=== PATIENT | female | born 1990 | race Caucasian/White ===

== ENCOUNTER 2020-08-29 23:36 | Inpatient (IN) | payer MEDICAID ==
[~2020-08-29] VITALS: Ht 167.6 cm; Wt 117.0 kg
[2020-08-30] MEDS ORDERED: LACTATED RINGERS 1,000 ML IV SCH (00:15)
[2020-08-30] MEDS ORDERED: MORPHINE SULFATE 5 MG/ML VIAL IVP PRN (00:15)
[2020-08-30] MEDS: MAG SULF 20 GM/H2O PREMIX DRIP 500 ML IV SCH ×2 (00:51→08:26)
[2020-08-30 00:53] LABS: BASOPHILS # (AUTO) 0.1 K/uL (0.00-0.22); BASOPHILS % (AUTO) 0.6 % (0.0-2.0); EOSINOPHILS # (AUTO) 0.1 K/uL (0-0.4); EOSINOPHILS % (AUTO) 1.1 % (0.0-4.0); HEMATOCRIT 38.7 % (36-48); HEMOGLOBIN 12.9 g/dL (12.0-16.0); LYMPHOCYTES # (AUTO) 1.7 K/uL (2.5-16.5); LYMPHOCYTES % (AUTO) 19.4 % (20.5-51.1); MEAN CORPUSCULAR HEMOGLOBIN 29 pg (27-31); MEAN CORPUSCULAR HGB CONC 33 g/dL (33-37); MEAN CORPUSCULAR VOLUME 87.2 fL (80-94); MONOCYTES # (AUTO) 0.7 K/uL (0.8-1.0); MONOCYTES % (AUTO) 7.5 % (1.7-9.3); NEUTROPHILS # (AUTO) 6.2 K/uL (1.8-7.7); NEUTROPHILS % (AUTO) 71.4 % (42.2-75.2); PLATELET COUNT (AUTO) 115 K/uL (140-450); RED BLOOD CELL COUNT(AUTO) 4.44 MIL/uL (4.20-5.40); RED CELL DISTRIBUTION WIDTH 14.1 % (11.6-13.7); WHITE BLOOD COUNT (AUTO) 8.7 K/uL (4.8-10.8)
[2020-08-30 01:09] LABS: ALBUMIN 2.4 g/dL (3.4-5.0); ANION GAP 19.9 (8-16); CARBON DIOXIDE 21.1 mmol/L (21-32); CREATININE 0.8 mg/dL (0.6-1.3); MAGNESIUM 1.6 mg/dL (1.8-2.4); TOTAL BILIRUBIN 0.4 mg/dL (0.0-1.0); URIC ACID 3.1 mg/dL (2.6-7.2)
[2020-08-30 01:10] LABS: APPEARANCE,URINE SL CLOUDY (CLEAR); BILIRUBIN,URINE NEGATIVE (NEGATIVE); BLOOD, URINE 1+ (NEGATIVE); COLOR,URINE AMBER (YELLOW); LEUKOCYTE ESTERASE ,URINE 2+ (NEGATIVE); NITRITE, URINE NEGATIVE (NEGATIVE); PH,URINE 6.5 (5.0-9.0); UGLUCOSE 3+ (NEGATIVE)
[2020-08-30 01:14] LABS: URINE TOTAL PROTEIN 152.5 mg/dL (0-12)
[2020-08-30] MEDS ORDERED: MORPHINE SULFATE 10 MG/ML VIAL ONE (01:31)
[2020-08-30 02:15] LABS: WBC,URINE 20-60 /HPF (0-5); YEAST,URINE Few /HPF (None Seen)
[2020-08-30 02:32] VITALS: BP 173/107
[2020-08-30] MEDS ORDERED: PRETAB PO (02:42)
[2020-08-30] MEDS ORDERED: OSC500 PO (02:42)
[2020-08-30] MEDS ORDERED: FERR325E14 PO (02:42)
[2020-08-30] MEDS: ONDANSETRON 4 MG/2 ML VIAL IVP PRN ×2 (03:33→08:51)
[2020-08-30] MEDS ORDERED: BETAMETH ACET/BETAMETH NA PH 30 MG/5 ML VIAL IM ONE (08:03)
[2020-08-30] MEDS ORDERED: BETAMETH ACET/BETAMETH NA PH 30 MG/5 ML VIAL IM SCH (08:05)
--- NOTE | 2020-08-30 08:40 | NUR ---
PATIENT HAS BEEN SCREENED AND CATEGORIZED LOW NUTRITION RISK. PATIENT WILL BE SEEN WITHIN 7 DAYS OF ADMISSION. 09/05/[address]
== END 2020-08-30 10:43 | disposition home or self-care (01) | DRG 566 ==
LOC: UNDOADMOB 23:36 → MLD 23:36 → UNDOADMOB 08-30 00:11 → MLD 08-30 00:11 → OBSVTOIN 08-30 00:11 → INTOOBSV 08-30 08:38 → OBSVTOIN 08-30 08:38 → UNDODISIN 08-30 10:43
PROVIDERS: ADMIT Obstetrics & Gynecology; ATTEND Obstetrics & Gynecology
DX: O11.3 Pre-existing hypertension with pre-eclampsia, third trimester (principal); O24.419 Gestational diabetes mellitus in pregnancy, unspecified control; O10.913 Unspecified pre-existing hypertension complicating pregnancy, third trimester; Z3A.34 34 weeks gestation of pregnancy; O60.03 Preterm labor without delivery, third trimester; O23.43 Unspecified infection of urinary tract in pregnancy, third trimester; Z20.828 Contact with and (suspected) exposure to other viral communicable diseases
CPT/HCPCS: 36415; 76805; 80053; 81001; 82570; 82948; 83605; 83735; 84550; 85025; 85384; 86886; 86900; 86901; 87086; G0378; J0702; J2270; J2405; J3475; J7120; Q0092